=== PATIENT | female | born 1945 | race Caucasian/White ===

== ENCOUNTER → 2020-02-25 16:00 | Outpatient (CLI) | payer MEDICARE, OTHER, SELFPAY ==
[2020-02-26 09:10] LABS: COVID19 Sendout NOT DETECTED (Not Detect)
== END ==
PROVIDERS: PCP Family Medicine; Visit Provider Registered Nurse
DX: Z01.818 Encounter for other preprocedural examination (principal)
CPT/HCPCS: 87635

== ENCOUNTER → 2020-10-16 07:24 | Outpatient (CLI) | payer MEDICARE, OTHER, SELFPAY ==
[2020-10-16] MEDS: COVID-19 VACC #1, MRNA(MOD) 100 MCG/0.5 ML VIAL IM (07:30)
== END ==
PROVIDERS: PCP Family Medicine; Visit Provider Internal Medicine
DX: Z23 Encounter for immunization (principal)
CPT/HCPCS: 0011A; 91301

== ENCOUNTER → 2020-11-13 07:29 | Outpatient (CLI) | payer MEDICARE, OTHER, SELFPAY ==
[2020-11-13] MEDS: COVID-19 VACC #2, MRNA(MOD) 100 MCG/0.5 ML VIAL IM (07:43)
== END ==
PROVIDERS: PCP Family Medicine; Visit Provider Internal Medicine
DX: Z23 Encounter for immunization (principal)
CPT/HCPCS: 0012A; 91301

== ENCOUNTER → 2025-02-20 09:56 | Outpatient (CLI) | payer MEDICARE, OTHER, SELFPAY ==
[2025-02-23 22:36] LABS: QuantiFERON Mitogen Value >10.00 IU/mL (.); QuantiFERON Nil Value 0.48 IU/mL (.); QuantiFERON TB Gold Plus Negative (Negative); QuantiFERON TB1 Ag Value 0.36 IU/mL (.); QuantiFERON TB2 Ag Value 0.47 IU/mL (.)
== END ==
PROVIDERS: PCP Family Medicine; Referring Provider Family Medicine
DX: L40.0 Psoriasis vulgaris (principal)
CPT/HCPCS: 36415; 82180; 86480